=== PATIENT | female | born 1995 | race African-American/Black ===

== ENCOUNTER 2016-09-02 17:55 | Emergency (ER) | payer SELFPAY ==
[~2016-09-02] VITALS: Ht 180.3 cm; Wt 81.6 kg
[2016-09-02] MEDS ORDERED: AMOX500C2 PO (18:22)
[2016-09-02] MEDS ORDERED: TRAM-42 PO (18:22)
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
[2016-09-02 18:27] VITALS: BP 124/90
== END 2016-09-02 18:27 | disposition home or self-care (01) ==
LOC: ER 17:58
DX: K02.9 Dental caries, unspecified (principal)
CPT/HCPCS: 99282

== ENCOUNTER 2017-01-18 20:48 | Emergency (ER) | payer SELFPAY ==
[~2017-01-18] VITALS: Ht 180.3 cm; Wt 84.8 kg
[~2017-01-18 20:48] MED LIST: AMOX500C2 PO; TRAM-42 PO
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
[2017-01-18] MEDS ORDERED: DICL75TA2 PO (21:59)
[2017-01-18] MEDS ORDERED: CEPH-507 PO (21:59)
[2017-01-18] MEDS ORDERED: RX-TRAMADOL 50 MG (ULTRAM) TAB PPK#4 PO STA (22:11)
[2017-01-18] MEDS ORDERED: LIDOCAINE 2% VISCOUS 15 ML UDC PO ONE (22:15)
[2017-01-18] MEDS ORDERED: HURRICAINE EXT TUBE (BENZOCAINE) XX ONE (22:15)
[2017-01-18] MEDS ORDERED: RX-HYDROCODONE/APAP 5/325 MG #4 TAB PK PO PRN (22:15)
[2017-01-18 22:26] VITALS: BP 137/91
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
== END 2017-01-18 22:26 | disposition home or self-care (01) ==
LOC: EDUNIT# 20:48 → ER 20:51
DX: R68.84 Jaw pain (principal); Z87.828 Personal history of other (healed) physical injury and trauma
CPT/HCPCS: 99283